=== PATIENT | female | born 1955 | race African-American/Black ===

== ENCOUNTER 2021-12-29 20:58 | Observation (INO) ==
[2021-12-30] MEDS ORDERED: SODIUM CHLORIDE 0.9% 1,000 ML IV STA (01:28)
[2021-12-30] MEDS ORDERED: ONDANSETRON 4 MG/2 ML VIAL IV STA (01:28)
[2021-12-30 02:17] LABS: Albumin 3.8 G/DL (3.4-5.0); Basophils # 0.1 10*3/uL (0.0-0.2); Basophils % 0.4 % (0.0-0.8); Bilirubin,Total 0.7 MG/DL (0.20-1.00); Calcium 10.7 MG/DL (8.5-10.1); Eosinophils % 0.1 % (0.00-10.9); Hematocrit 43.8 VOL% (35.7-47.0); Hemoglobin 13.9 GM/DL (12.0-16.0); Immature Granulocytes % 0.4 %; Immature Granulocytes Absolute 0.06 #; Lymphocytes # 1.2 10*3/uL (1.4-4.0); Mean Corpuscular HGB Conc 31.7 GM/DL (32-36); Mean Corpuscular Volume 98.4 FL (87-102); Mean Platelet Volume 9.9 FL (9.6-12.0); Monocytes % 5.9 % (1.7-12.7); Neutrophils % 86.2 % (38.7-73.9); Osmolality,Calculated 276.8 MOS/KG (273-304); Platelet Count 443 T/CUMM (130-400); Potassium 3.6 MMOL/L (3.5-5.1); Red Blood Count 4.45 MC/CUMM (3.8-5.5); Red Cell Distribution Width 13.3 % (9.3-17.3); Total Protein 8.4 G/DL (6.4-8.2); White Blood Count 16.7 T/CUMM (4-12)
[2021-12-30 02:28] LABS: Bacteria,Urine Occasional /HPF (Few); Mucus,Urine Many /LPF (Occasional); RBC,Urine 3 /HPF (0-4); Squamous Epithelial Cell,Urine Occasional /HPF (0-10)
[2021-12-30 02:30] LABS: Bilirubin,Urine Negative (Negative); Blood, Urine Trace mg/dL (Negative); Glucose,Urine (UA) Negative (Negative); Ketones,Urine Negative (Negative); Nitrite,Urine Negative (Negative); Protein,Urine 30 mg/dL (Negative); Urine Appearance Clear (Clear); Urine Color Yellow (Yellow); Urine Specific Gravity >= 1.030 (1.001-1.035); Urine Urobilinogen 0.2 eU/dL (<2.0); Urine pH 5.5 (4.5-8.0)
[2021-12-30] MEDS ORDERED: PIPERACILLIN/TAZOBACTAM 3,375 MG in SODIUM CHLORIDE 0.9% 100 ML IV STA (03:36)
[2021-12-30] MEDS ORDERED: HYDROmorphone 1 MG/1 ML SYRINGE IV PRN (05:03)
[2021-12-30] MEDS: SODIUM CHLORIDE 0.9% 1,000 ML IV SCH ×3 (05:14→22:36)
[2021-12-30] MEDS: ONDANSETRON 4 MG/2 ML VIAL IV PRN (06:47)
[2021-12-30] MEDS: PANTOPRAZOLE 40 MG VIAL IV SCH (09:45)
[2021-12-30] MEDS ORDERED: PIPERACILLIN/TAZOBACTAM 3,375 MG in SODIUM CHLORIDE 0.9% 100 ML IV SCH (12:00)
[2021-12-30] MEDS: ENOXAPARIN 40 MG/0.4 ML SYRINGE SUBCUT SCH (20:55)
[2021-12-30] MEDS: ACETAMINOPHEN 325 MG TABLET PO PRN (20:55)
[2021-12-31 05:34] LABS: Basophils % 0.2 % (0.0-0.8); Eosinophils # 0.2 10*3/uL (0.0-0.87); Eosinophils % 1.6 % (0.00-10.9); Immature Granulocytes % 0.4 %; Immature Granulocytes Absolute 0.05 #; Lymphocytes # 1.5 10*3/uL (1.4-4.0); Lymphocytes % 12.1 % (21.3-54.2); Mean Corpuscular HGB Conc 31.8 GM/DL (32-36); Mean Corpuscular Volume 99.1 FL (87-102); Mean Platelet Volume 9.8 FL (9.6-12.0); Monocytes # 1.6 10*3/uL (0.11-0.8); Monocytes % 12.9 % (1.7-12.7); Neutrophils % 72.8 % (38.7-73.9); Red Cell Distribution Width 13.3 % (9.3-17.3); White Blood Count 12.1 T/CUMM (4-12)
[2021-12-31 05:35] LABS: Hemoglobin 10.8 GM/DL (12.0-16.0); Red Blood Count 3.43 MC/CUMM (3.8-5.5)
[2021-12-31 05:36] LABS: Platelet Count 323 T/CUMM (130-400)
[2021-12-31 05:45] LABS: Albumin 2.4 G/DL (3.4-5.0); Bilirubin,Total 0.7 MG/DL (0.20-1.00); Calcium 8.6 MG/DL (8.5-10.1); Total Protein 6.1 G/DL (6.4-8.2)
[2021-12-31 06:06] LABS: Osmolality,Calculated 272.7 MOS/KG (273-304); Potassium 2.7 MMOL/L (3.5-5.1)
[2021-12-31] MEDS: POTASSIUM CHLORIDE 20 MEQ TABLET PO PRN ×5 (08:32→22:33)
[2021-12-31] MEDS: PANTOPRAZOLE 40 MG VIAL IV SCH (08:32)
[2021-12-31] MEDS: ACETAMINOPHEN 325 MG TABLET PO PRN ×2 (08:33→16:17)
[2021-12-31] MEDS: SODIUM CHLORIDE 0.9% 1,000 ML IV SCH (08:33)
[2021-12-31] MEDS: ONDANSETRON 4 MG/2 ML VIAL IV PRN (08:50)
[2021-12-31] MEDS: ENOXAPARIN 40 MG/0.4 ML SYRINGE SUBCUT SCH (20:48)
[2022-01-01] MEDS: POTASSIUM CHLORIDE 20 MEQ TABLET PO PRN ×2 (00:50→02:59)
[2022-01-01] MEDS: SODIUM CHLORIDE 0.9% 1,000 ML IV SCH ×2 (02:58→02:59)
[2022-01-01 05:14] LABS: Basophils % 0.2 % (0.0-0.8); Eosinophils # 0.1 10*3/uL (0.0-0.87); Eosinophils % 1.4 % (0.00-10.9); Hematocrit 32.6 VOL% (35.7-47.0); Hemoglobin 10.4 GM/DL (12.0-16.0); Immature Granulocytes % 0.3 %; Immature Granulocytes Absolute 0.03 #; Lymphocytes # 1.6 10*3/uL (1.4-4.0); Lymphocytes % 18.8 % (21.3-54.2); Mean Corpuscular HGB Conc 31.9 GM/DL (32-36); Mean Corpuscular Volume 97.6 FL (87-102); Mean Platelet Volume 9.7 FL (9.6-12.0); Monocytes # 1.5 10*3/uL (0.11-0.8); Monocytes % 17.8 % (1.7-12.7); Neutrophils % 61.5 % (38.7-73.9); Platelet Count 277 T/CUMM (130-400); Red Blood Count 3.34 MC/CUMM (3.8-5.5); Red Cell Distribution Width 12.8 % (9.3-17.3); White Blood Count 8.6 T/CUMM (4-12)
[2022-01-01 05:45] LABS: Albumin 2.6 G/DL (3.4-5.0); Bilirubin,Total 0.6 MG/DL (0.20-1.00); Calcium 8.2 MG/DL (8.5-10.1); Osmolality,Calculated 274.4 MOS/KG (273-304); Potassium 3.6 MMOL/L (3.5-5.1); Total Protein 6.3 G/DL (6.4-8.2)
[2022-01-01 05:57] LABS: Atypical Lymphocytes Few; Eosinophils 5 % (0-10); Lymphocytes 17 % (20-55); Total Cells Counted 100
[2022-01-01 05:58] LABS: Hypochromia Slight; Microcytosis Slight; Platelet Estimate Normal
[2022-01-01 08:18] VITALS: BP 132/79
[2022-01-01] MEDS: PANTOPRAZOLE 40 MG VIAL IV SCH (09:05)
== END 2022-01-01 10:25 | disposition home or self-care (01) ==
LOC: N.ED 20:58 → N.EDINP 12-30 03:36 → INTOOBSV 12-30 03:36 → N.3E 12-30 13:02
PROVIDERS: ADMIT Surgery; ATTEND Surgery